=== PATIENT | male | born 1980 | race Caucasian/White ===

== ENCOUNTER 2019-01-14 01:24 | Emergency (ER) | payer SELFPAY ==
[~2019-01-14] VITALS: Ht 180.3 cm; Wt 85.7 kg
[2019-01-14 01:31] VITALS: Ht 180.3 cm; Wt 85.7 kg
[2019-01-14 03:08] LABS: CARBON DIOXIDE 30.7 mmol/L (21-32); CHLORIDE SERUM 104 mmol/L (98-107); CREATININE SERUM 0.9 mg/dL (0.7-1.3); GFR1 > 60 mL/min; GLUCOSE SERUM 101 mg/dL (74-106); SODIUM SERUM 140 mmol/L (136-145)
[2019-01-14 03:12] LABS: BASOPHIL % 0.5 % (0-2); PLATELET COUNT 243 x10^3mcL (130-400); RED CELL DISTRIBUTION WIDTH 12.2 % (11.5-14.5)
[2019-01-14 03:13] LABS: ALBUMIN 3.7 g/dL (3.4-5.0); ALKALINE PHOSPHATASE 85 U/L (46-116); ALT/SGPT 20 U/L (16-63); AST/SGOT 22 U/L (15-37); BILIRUBIN TOTAL 0.37 mg/dL (0.20-1.00); TOTAL PROTEIN, SERUM 7.7 g/dL (6.4-8.2)
[2019-01-14 04:04] VITALS: BP 148/79
== END 2019-01-14 04:04 | disposition home or self-care (01) ==
LOC: ED 01:24
PROVIDERS: Specialist
DX: R07.89 Other chest pain (principal)
CPT/HCPCS: 36415; J1885